=== PATIENT | male | born 1980 | race Caucasian/White ===

== ENCOUNTER 2019-09-27 07:35 | Emergency (ER) | payer BC ==
[~2019-09-27] VITALS: Ht 180.3 cm; Wt 125.0 kg
[2019-09-27 07:42] VITALS: BP 160/92; TEMP 97.1
[2019-09-27] MEDS ORDERED: HUMALOG100 U/ML SQ (08:32)
[2019-09-27] MEDS ORDERED: AMOXICILLIN 8751 TAB PO (10:03)
[2019-09-27 10:10] VITALS: PULSE 88
== END 2019-09-27 10:10 | disposition home or self-care (01) ==
LOC: COL.ER 07:35 → EDSEX 07:37 → COL.ER 10:10
DX: R09.89 Other specified symptoms and signs involving the circulatory and respiratory systems (principal); E10.9 Type 1 diabetes mellitus without complications